=== PATIENT | female | born 2005 | race Two or more races ===

== ENCOUNTER 2024-11-21 20:02 | Emergency (ER) | payer MEDICAID, SELFPAY ==
--- NOTE | 2024-11-21 20:12 | PC.NURSE ---
Pt ambulated to [facility] 6 with c/o possible allergic reaction. Had beef soup an hour ago, and took Temaflu in the morning. Pt seen by Jorge CORREA.
--- NOTE | 2024-11-21 20:15 | EDNOTE_ITS ---
<Statement entered by Theresa Patrick MD - 11/22/24 18:36> As co-signing physician, I was present and available for consult prn. I concur with the plan and care as documented by the midlevel provider. ED Allergic Reaction RME/HPI General Chief complaint: Allergic Reaction Stated complaint: SWOLLEN LIPS Time Seen by Provider: 11/21/24 20:14 Arrival date/time: 11/21/24 20:02 RME / HPI RME / HPI narrative: 19-year-old female patient with no significant past medical history, came in for evaluation regarding possible allergic reaction. Patient symptoms started about 1 hour prior to ER visit and swelling to the lips both lips upper and lower, associated with feeling of throat closing. Patient also complained of itchiness scattered all over. Patient took first dose of Tamiflu this morning. Was eating beef soup when it happened. Denies any shortness of breath. No medications taken prior to arrival. Related Data Previous Rx's ?Medication ?Instructions ?Recorded diphenhydramine HCl 25 mg capsule 25 mg PO TID PRN all ergic reaction 11/21/24 (Banophen) #30 caps Allergies Allergy/AdvReac Type Severity Reaction Status Date / Time No Known Allergies Allergy Verified 11/21/24 20:03 Review of Systems Review of Systems Narrative Review of Systems: Review of system reviewed and within normal limits except mentioned in HPI ED Exam Narrative Physical exam: VITAL SIGNS: Reviewed. GENERAL APPEARANCE: Alert and interactive, follows commands, no acute distress, HEAD AND FACE: Non-traumatic. ENT: PERRL, pink conjunctivitis, eyelid no trauma, Mucous membrane moist. Lips swelling, rashes noted on the face NECK: Supple, nontender, no nuchal rigidity. CHEST: No tenderness, no crepitus, no paradoxical movement, no retractions. LUNGS: Clear, well ventilated, symmetric, no rales, no wheezing, no ronchi, no stridor, good breath sounds bilaterally. HEART: Regular rate, regular rhythm, no murmur, no gallops. ABDOMEN: Soft, positive bowel sounds, nondistended, no guarding, nontender, no rebound, no masses, RECTAL: Deferred. GENITAL: Deferred. NEUROLOGICAL: Gross motor function intact sensory function intact, Appropriate for age. MUSCULOSKELETAL: low back nontender, full range of motion. EXTREMITIES: Nontender, full range of motion. SKIN: Color pink, dry, no rash, no lacerations, no abrasions, no contusions. LYMPHATICS: Deferred. Course Quality Measures none Orders Category Date Time Status IV [Insert IV] NOW Care 11/21/24 20:20 Active DiphenhydrAMINE INJ [Benadryl Inj] Med 11/21/24 20:14 Discontinued 50 mg IVP X1 ONE EPINEPHrine Inj [Adrenalin Inj] Med 11/21/24 20:14 Discontinued 0.3 mg IM X1 ONE Famotidine Inj [Pepcid Inj] Med 11/21/24 20:14 Discontinued 20 mg IVP X1 ONE MethylPREDNISolone.* [SoluMEDROL Inj] Med 11/21/24 20:14 Discontinued 125 mg IVP X1 ONE Sodium Chloride 0.9% 1000 ml [Ns] 1,000 ml Med 11/21/24 22:45 Active IV 999 mls/hr Vital Signs Vital signs: Vital Signs Pulse Rate 118 H 11/21/24 20:22 Blood Pressure 131/93 H 11/21/24 20:22 Allergic Reaction MDM Narrative MDM Narrative:: 19-year-old female patient with no significant past medical history, came in for evaluation regarding possible allergic reaction. Patient symptoms started about 1 hour prior to ER visit and swelling to the lips both lips upper and lower, associated with feeling of throat closing. Patient also complained of itchiness scattered all over. Patient took first dose of Tamiflu this morning. Was eating beef soup when it happened. Denies any shortness of breath. No medications taken prior to arrival. Patient received IV fluids, epinephrine IM, Solu-Medrol IV Pepcid and Benadryl with complete resolution of symptoms. Patient was advised to follow-up with PCP and for referral to account collector to identify the source of the allergen patient agrees with the plan Patient appears nontoxic and hemodynamically stable. Patient discharged home and instructed to follow-up with primary care provider in 24 to 48 hours. Instructed to return to the emergency department immediately if worsening of symptoms Patient data External records reviewed:: None Clinical information provided by:: patient Social determinants that could affect healthcare access:: none Patient has the following chronic illnesses:: None How is presenting disease/condition affected by chronic disease/condition?: no chronic disease Evaluation data The following diagnostics were reviewed and interpreted by me:: other (specify) Lab and/or radiology exams considered but not ordered:: None Interpretation Summary: None Medications / Prescriptions Medications or Prescriptions considered but not ordered:: None Medication administrations:: Medication Administration History Sodium Chloride (Ns) 1,000 mls @ 999 mls/hr IV .Q1H1M ONE Stop: 11/21/24 23:45 Last Admin: 11/21/24 22:47 Dose: 999 mls/hr Documented By: KRISTAN Discontinued Medications Diphenhydramine HCl (Diphenhydramine Inj 50 Mg/Ml Vial) 50 mg IVP X1 ONE Stop: 11/21/24 20:15 Last Admin: 11/21/24 20:26 Dose: 50 mg Documented By: KRISTAN Epinephrine HCl (Epinephrine Inj 1 Mg/Ml Amp) 0.3 mg IM X1 ONE Stop: 11/21/24 20:15 Last Admin: 11/21/24 20:22 Dose: 0.3 mg Documented By: KRISTAN Famotidine (Famotidine Inj 10 Mg/Ml Vial 2 Ml) 20 mg IVP X1 ONE Stop: 11/21/24 20:15 Last Admin: 11/21/24 20:32 Dose: 20 mg Documented By: KRISTAN Methylprednisolone Sodium Succinate (Methylprednisolone Sod Succ 62.5 Mg/Ml 2ml Vial) 125 mg IVP X1 ONE Stop: 11/21/24 20:15 Last Admin: 11/21/24 20:29 Dose: 125 mg Documented By: KRISTAN Benadryl epinephrine Pepcid and Solu-Medrol patient also received IV fluids Consultations Consultation(s) initiated? (list below): No Diagnosis Differential Diagnosis allergic reaction: anaphylaxis, allergic reaction, angioedema and adverse reaction to drug Most likely diagnosis given after review of the tests above:: Allergic reaction Admission Indicated Admission indicated?: not indicated Admission Request Was there a request for admission?: No Disposition Plan Disposition Plan: Discharge Discharge Attestation Discharge Attestation: The patient and all family members were given an opportunity to ask questions and understood the discharge instructions. Discharge instructions specifically effects, indications for sooner follow up or return to the emergency department, and the expected course of current diagnosis. Patient condition: Stable Discharge Plan Plan Patient Disposition: HOME (Self Care) Prescriptions/Referrals Prescriptions/Med Rec: New diphenhydramine HCl [Banophen] 25 mg capsule 25 mg PO TID PRN (Reason: allergic reaction) Qty: 30 0RF Referrals: Kathy Oliva NP [Primary Care Provider] - In 1 week Problem List Clinical Impression: Allergic reaction Patient/Caregiver Discharge Instructions Discharge Activity: activity as tolerated Education Materials: ED Medicine Reaction: Allergic Additional Instructions: Thank you for the opportunity for serving you today. You are stable for discharged . You are advised to: Follow-up with your PCP in 1 to 2 days Return to ED for worsening of symptoms Increase oral fluids Take medication as prescribed Stop taking your Tamiflu Print Language: Nauruan Stand Alone Forms: Suzie Award Info., Patient Portal Info Letter PA/HIPOLITO Supervising Physician PA/HIPOLITO Supervising Physician: MD Celina
[2024-11-21 20:22] VITALS: BP 131/93; PULSE 118
[2024-11-21] MEDS: EPINEPHrine INJ 1 MG/ML AMP 0.3 MG IM (20:22)
[2024-11-21] MEDS: DiphenhydrAMINE INJ 50 MG/ML VIAL IVP (20:26)
[2024-11-21] MEDS: MethylPREDNISolone SOD SUCC 62.5 MG/ML 2ML VIAL 125 MG IVP (20:29)
[2024-11-21 20:30] VITALS: BP 131/93; RESP 20; O2SAT 98
[2024-11-21] MEDS: FAMOTIDINE INJ 10 MG/ML VIAL 2 ML 20 MG IVP (20:32)
[2024-11-21 20:54] VITALS: BMI 33.4
[2024-11-21 21:23] VITALS: BP 120/80; RESP 20; O2SAT 99
--- NOTE | 2024-11-21 21:25 | PC.NURSE ---
Awake, no resp distress noted. Feels better, less swelling to upper and lower lips noted.
[2024-11-21 22:00] VITALS: BP 125/86; PULSE 132; RESP 20; O2SAT 98
[2024-11-21] MEDS: SODIUM CHLORIDE 0.9% 1000 ML 1,000 ML 999 ML IV (22:47)
[2024-11-21 23:19] VITALS: BP 111/69; PULSE 120; RESP 18; TEMP 37.2; O2SAT 98
[2024-11-21 23:32] VITALS: BP 115/68; PULSE 118; RESP 18; TEMP 37.1
== END 2024-11-21 23:34 | disposition home or self-care (01) ==
PROVIDERS: Emergency Provider Emergency Medicine; PCP Nurse Practitioner Family
DX: T78.40XA Allergy, unspecified, initial encounter (principal)
CPT/HCPCS: 96361; 96372; 96374; 96375; 99284; J0171; J1200; J2919; J3490; J7030

== ENCOUNTER → 2025-07-08 | Outpatient (CLI) | payer MEDICAID, SELFPAY ==
--- NOTE | 2025-07-08 08:30 | XR_ITS ---
Examination: Breast ultrasound, unilateral, right Date and time of exam: July 08, 2025, 0841 hours INDICATIONS: Palpable lump in the axillary portion of the right breast noticed beginning 1 year ago Technique: Real-time villa scale ultrasonographic imaging performed right breast including all 4 quadrants as well as nipple retroareolar and axillary region. Findings: Dilated ducts retroareolar No cystic or solid mass IMPRESSION: BI-RADS Category 2: Benign findings
--- NOTE | 2025-07-08 09:00 | XR_ITS ---
EXAMINATION: Ultrasound soft tissue extremity left upper arm TECHNIQUE: Grayscale sonographic images soft tissue upper medial left arm Date and time: July 08, 2025, 0851 hours INDICATIONS: Palpable lump or mass in the left arm noticed beginning 3 months ago. FINDINGS: No cystic or solid mass IMPRESSION: No cystic or solid mass
== END | disposition home or self-care (01) ==
LOC: CDIM 08:24
DX: N63.31 Unspecified lump in axillary tail of the right breast (principal); R22.32 Localized swelling, mass and lump, left upper limb
CPT/HCPCS: 76641; 76882